=== PATIENT | female | born 1965 | race Caucasian/White ===

== ENCOUNTER 2018-04-06 06:59 | Day surgery (SDC) | payer OTHER ==
[~2018-04-06 06:59] MED LIST: Lactated Ringers 1,000 ML IV SCH; Lidocaine 1%/Sod Bicarbonate in NS 8.4% 1 ML Syringe IDERM PRN; Sodium Chloride 0.9% 10 ML Syringe FLUSH PRN
[2018-04-06] MEDS ORDERED: Propofol 200 MG/20 ML SDV ONE (07:22)
[2018-04-06] MEDS ORDERED: fentaNYL 100 MCG/2 ML SDV ONE (07:23)
[2018-04-06] MEDS ORDERED: Lidocaine 1% 4 ML ONE (07:23)
--- NOTE | 2018-04-06 07:35 | PCM.PREANE ---
Preanesthetic Assessment - Anesthesia/Transfusion/Family Hx Anesthesia History: Prior Anesthesia Without Reaction Family History of Anesthesia Reaction: No Transfusion History: No Prior Transfusion(s) - Review of Systems General: No Symptoms Pulmonary: No Symptoms Cardiovascular: No Symptoms, Other (hypertension, elevated lipids) Gastrointestinal: No Symptoms Neurological: No Symptoms Other: Reports: None (Sesonal Allergies) - Physical Assessment NPO Status Date: 04/06/18 NPO Status Time: 04:00 O2 Sat by Pulse Oximetry: 99 Respiratory Rate: 16 Vital Signs: Last Vital Signs Temp 36.7 C 04/06/18 07:05 Pulse 79 04/06/18 07:05 Resp 16 04/06/18 07:05 BP 140/80 04/06/18 07:05 Pulse Ox 99 04/06/18 07:05 Height: 1.65 m Weight: 64.864 kg ASA Class: 2 Mental Status: Alert & Oriented x3 Airway Class: Mallampati = 1 Dentition: Reports: Normal Dentition Thyro-Mental Finger Breadths: 3 Mouth Opening Finger Breadths: 3 ROM/Head Extension: Full Lungs: Clear to Auscultation, Normal Respiratory Effort Cardiovascular: Regular Rate, Regular Rhythm - Allergies Allergies/Adverse Reactions: Allergies Allergy/AdvReac Type Severity Reaction Status Date / Time latex Allergy Rash Verified 04/05/18 13:18 - Acknowledgements Anesthesia Type Planned: MAC Pt an Appropriate Candidate for the Planned Anesthesia: Yes Alternatives and Risks of Anesthesia Discussed w Pt/Guardian: Yes Pt/Guardian Understands and Agrees with Anesthesia Plan: Yes PreAnesthesia Questionnaire HEENT History: Reports: Allergic Rhinitis, Impaired Vision Cardiovascular History: Reports: High Cholesterol, Hypertension Respiratory History: Reports: None Gastrointestinal History: Reports: Other (See Below) Other Gastrointestinal History: anal fistula with repair Genitourinary History: Reports: None 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 Musculoskeletal History: Reports: None Neurological History: Reports: None Psychiatric History: Reports: None Endocrine/Metabolic History: Reports: None Hematologic History: Reports: None Immunologic History: Reports: None Oncologic (Cancer) History: Reports: None Dermatologic History: Reports: None - Past Surgical History Head Surgeries/Procedures: Reports: None Cardiovascular Surgical History: Reports: None Respiratory Surgical History: Reports: None GI Surgical History: Reports: None Female Surgical History: Reports: None Male Surgical History: Reports: None Endocrine Surgical History: Reports: None Neurological Surgical History: Reports: None Musculoskeletal Surgical History: Reports: None Oncologic Surgical History: Reports: None Dermatological Surgical History: Reports: None - SUBSTANCE USE Smoking Status *Q: Never Smoker Recreational Drug Use History: No - HOME MEDS Home Medications: Home Meds Atenolol 50 mg PO DAILY 04/05/18 [History] Fexofenadine [Lorri] 180 mg PO DAILY 04/05/18 [History] Loratadine [Claritin] 10 mg PO DAILY PRN 04/05/18 [History] Multivitamin [Daily Multiple Vitamin] 1 tab PO DAILY 04/05/18 [History] Pravastatin Sodium 20 mg PO DAILY 04/05/18 [History] - CURRENT (IN HOUSE) MEDS Current Meds: Current Medications Lactated Ringer's (Ringers, Lactated) 1,000 mls @ 125 mls/hr IV ASDIRECTED CARYN Stop: 04/06/18 23:00 Lidocaine/Sodium Bicarbonate (Buffered Lidocaine 1% In Ns 8.4%) 0.25 ml IDERM ONETIME PRN PRN Reason: Prior to IV Start Stop: 04/06/18 18:00 Sodium Chloride (Saline Flush) 10 ml FLUSH ASDIRECTED PRN PRN Reason: Keep Vein Open Stop: 04/06/18 18:00 Discontinued Medications Fentanyl (Sublimaze) Confirm Administered Dose 100 mcg .ROUTE .STK-MED ONE Stop: 04/06/18 07:24 Lidocaine HCl (Xylocaine-Mpf 1%) Confirm Administered Dose 4 mls @ as directed .ROUTE .STK-MED ONE Stop: 04/06/18 07:24 Propofol (Diprivan 20 Ml) Confirm Administered Dose 400 mg .ROUTE .STK-MED ONE Stop: 04/06/18 07:23
--- NOTE | 2018-04-06 08:10 | PCM.HP ---
H&P History of Present Illness - General Date of Service: 04/06/18 Admit Problem/Dx: screening colonoscopy Source of Information: Patient - History of Present Illness Initial Comments - Free Text/Narative: 52 yo female, here for initial screening colonoscopy. She was seen in clinic in Jan 2018 for pre-op. She requires a update of her H&P prior to the procedure. NO changes to health since last evaluated. She took her atenolol with sip of water this morning. Denies any GI complaints after doing the prep. - Related Data Allergies/Adverse Reactions: Allergies Allergy/AdvReac Type Severity Reaction Status Date / Time latex Allergy Rash Verified 04/05/18 13:18 Home Medications: Home Meds Atenolol 50 mg PO DAILY 04/05/18 [History] Fexofenadine [Lorri] 180 mg PO DAILY 04/05/18 [History] Loratadine [Claritin] 10 mg PO DAILY PRN 04/05/18 [History] Multivitamin [Daily Multiple Vitamin] 1 tab PO DAILY 04/05/18 [History] Pravastatin Sodium 20 mg PO DAILY 04/05/18 [History] Past Medical History HEENT History: Reports: Allergic Rhinitis, Impaired Vision Cardiovascular History: Reports: High Cholesterol, Hypertension Respiratory History: Reports: None Gastrointestinal History: Reports: Other (See Below) Other Gastrointestinal History: anal fistula with repair Genitourinary History: Reports: None 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 Musculoskeletal History: Reports: None Neurological History: Reports: None Psychiatric History: Reports: None Endocrine/Metabolic History: Reports: None Hematologic History: Reports: None Immunologic History: Reports: None Oncologic (Cancer) History: Reports: None Dermatologic History: Reports: None - Past Surgical History Head Surgeries/Procedures: Reports: None Cardiovascular Surgical History: Reports: None Respiratory Surgical History: Reports: None GI Surgical History: Reports: None Female Surgical History: Reports: None Male Surgical History: Reports: None Endocrine Surgical History: Reports: None Neurological Surgical History: Reports: None Musculoskeletal Surgical History: Reports: None Oncologic Surgical History: Reports: None Dermatological Surgical History: Reports: None Social & Family History - Tobacco Use Smoking Status *Q: Never Smoker - Caffeine Use Caffeine Use: Reports: Coffee - Recreational Drug Use Recreational Drug Use: No Drug Use in Last 12 Months: No H&P Review of Systems - Review of Systems: Review Of Systems: ROS reveals no pertinent complaints other than HPI. Exam - Exam Exam: See Below - Vital Signs Vital Signs: Last Vital Signs Temp 36.7 C 04/06/18 07:05 Pulse 79 04/06/18 07:05 Resp 16 04/06/18 07:35 BP 140/80 04/06/18 07:05 Pulse Ox 99 04/06/18 07:35 Weight: 64.864 kg - Exam General: Alert, Oriented, Cooperative HEENT: Conjunctiva Clear Neck: Supple. No: Lymphadenopathy Lungs: Clear to Auscultation, Normal Respiratory Effort Cardiovascular: Regular Rate, Regular Rhythm, Normal S1, Normal S2. No: Systolic Murmur GI/Abdominal Exam: Soft, Non-Tender, No Distention Extremities: Normal Inspection Skin: Warm, Intact Psychiatric: Alert, Normal Affect, Normal Mood - Problem List (1) Screening for colon cancer SNOMED Code(s): 693547997, [id number] ICD Code: Z12.11 - ENCOUNTER FOR SCREENING FOR MALIGNANT NEOPLASM OF COLON Status: Acute Current Visit: Yes Problem List Initiated/Reviewed/Updated: Yes Orders Last 24hrs: Active Orders 24 hr Category Date Time Status Peripheral IV Care [RC] . DIRECTED Care 04/06/18 00:01 Active Verify Patient Consent Obtain [RC] ASDIRECTED Care 04/06/18 00:01 Active Lactated Ringers [Ringers, Lactated] 1,000 ml Med 04/06/18 00:01 Active IV ASDIRECTED Lidocaine 1%/Sod Bicarbonate [Buffered Lidocaine 1% in Med 04/06/18 00:01 Active NS 8.4%] 0.25 ml IDERM ONETIME PRN Sodium Chloride 0.9% [Saline Flush] Med 04/06/18 00:01 Active 10 ml FLUSH ASDIRECTED PRN Medication Administration Instruction [OM.PC] Routine Oth 04/06/18 00:01 Ordered Peripheral IV Insertion Adult [OM.PC] Routine Oth 04/06/18 00:01 Ordered Medication Orders Lactated Ringer's (Ringers, Lactated) 1,000 mls @ 125 mls/hr IV ASDIRECTED CARYN Stop: 04/06/18 23:00 Last Admin: 04/06/18 07:30 Dose: 125 mls/hr Lidocaine/Sodium Bicarbonate (Buffered Lidocaine 1% In Ns 8.4%) 0.25 ml IDERM ONETIME PRN PRN Reason: Prior to IV Start Stop: 04/06/18 18:00 Last Admin: 04/06/18 07:29 Dose: 0.25 ml Sodium Chloride (Saline Flush) 10 ml FLUSH ASDIRECTED PRN PRN Reason: Keep Vein Open Stop: 04/06/18 18:00 Assessment/Plan Comment:: 52 yo female, h/o HTN (on betablocker) here for initial screening colonoscopy, average risk. - Patient was consented for colonoscopy with possible biopsy. Indications, risks , and benefits were discussed with the patient in detail. Risks include bleeding , infection, damage to the GI tract, need for additional procedures, and missed abnormalities. - Will proceed with procedure today. Jae Gutierrez M.D., F.A.C.S. General Surgery Pager: [phone]
[2018-04-06] MEDS ORDERED: Ondansetron 4 MG/2 ML SDV ONE (08:27)
--- NOTE | 2018-04-06 08:57 | PCM.OPNOTE ---
- General Post-Op/Procedure Note Date of Surgery/Procedure: 04/06/18 Operative Procedure(s): colonoscopy with biopsy Findings: 1) mild sigmoid diverticulosis 2) 1.2 cm anal polyp, pendunculated Pre Op Diagnosis: screening colonoscopy Post-Op Diagnosis: s/p colonoscopy with biopsy Anesthesia Technique: MAC Primary Surgeon: Jae Gutierrez Anesthesia Provider: Talya Garnica Pathology: anal polyp Complications: None Condition: Good Free Text/Narrative:: Indications for surgery: The patient is 52 yo female, average risk for colorectal cancer, here for initial screening colonoscopy. The patient was consented for colonoscopy with possible biopsy. Indications, risks, and benefits were discussed with the patient in detail. Description of procedure: After surgical consent was verified, the patient was brought to the main OR. A surgical time-out was performed to verify proper patient and proper procedure. Anesthesia performed monitored anesthesia care. A digital rectal exam was performed, which was normal. The colonoscope was inserted into the anus and advanced through the colon to the cecum. Location of the cecum was confirmed by presence of the appendiceal orifice and by presence of the ileocecal valve. The scope was then withdrawn, with inspection of the colonic mucosa. Retroflexion was performed in the rectum. There was mild diverticulosis in the sigmoid colon. There was a 1.2 cm pendunculated polyp at the anus, seen on retroflexed view of the rectum. A biopy of the polyp was taken. The entire polyp could not easily be removed given the location. The remainder of the colon and rectum was normal. Withdrawal time was 10 minutes , including time spent performing biopsy. Blood loss was minimal. Prep was good. The patient tolerated the procedure well, was brought out of anesthesia, and transported to the PACU in stable condition. Jae Gutierrez M.D., F.A.C.S. General Surgery Pager: [phone]
--- NOTE | 2018-04-06 08:58 | PCM48HPAN ---
Post Anesthesia Note - EVALUATION WITHIN 48HRS OF ANESTHETIC Vital Signs in Normal Range: Yes Patient Participated in Evaluation: Yes Respiratory Function Stable: Yes Airway Patent: Yes Cardiovascular Function Stable: Yes Hydration Status Stable: Yes Pain Control Satisfactory: Yes Nausea and Vomiting Control Satisfactory: Yes Mental Status Recovered: Yes
== END 2018-04-06 09:30 | disposition home or self-care (01) ==
LOC: JD.SDS 06:59
PROVIDERS: ATTEND Student in an Organized Health Care Education/Training Program
DX: Z12.11 Encounter for screening for malignant neoplasm of colon (principal); K62.0 Anal polyp; K57.30 Diverticulosis of large intestine without perforation or abscess without bleeding; I10 Essential (primary) hypertension; E78.00 Pure hypercholesterolemia, unspecified; Z79.899 Other long term (current) drug therapy; Z91.040 Latex allergy status
CPT/HCPCS: 45380; J2405; J2704; J3010; J7120; 00811; J2001